=== PATIENT | male | born 1995 | race Caucasian/White ===

== ENCOUNTER 2018-12-23 17:29 | Emergency (ER) | payer SELFPAY ==
[2018-12-23 17:36] VITALS: BP 123/69
--- NOTE | 2018-12-23 18:55 | ER Document Report ---
HPI - HPI Patient complains to provider of: Skin rash Time Seen by Provider: 12/23/18 18:10 Onset: Other - 1 month Onset/Duration: Persistent Pain Level: 0 Context: Patient complains of pruritic skin rash to trunk extremities and the penis. Patient denies any drainage or discharge from the penis. Patient denies any concerns about any sexually transmitted infection. Patient states that rash has not been painful. Associated Symptoms: denies: Fever, Sore throat Exacerbated by: Denies Relieved by: Denies Similar symptoms previously: No Recently seen / treated by doctor: No - ROS ROS below otherwise negative: Yes Systems Reviewed and Negative: Yes All other systems reviewed and negative - CONSTITUTIONAL Constitutional: DENIES: Fever, Chills - EENT EENT: DENIES: Sore Throat - NEURO Neurology: DENIES: Headache - GASTROINTESTINAL Gastrointestinal: DENIES: Abdominal Pain - URINARY Urinary: DENIES: Dysuria, Urgency, Frequency - MUSCULOSKELETAL Musculoskeletal: DENIES: Extremity pain - DERM Skin Color: Normal Skin Problems: Rash Past Medical History - General Information source: Patient - Social History Smoking Status: Never Smoker Chew tobacco use (# tins/day): No Frequency of alcohol use: Occasional Drug Abuse: Marijuana Occupation: Retail Lives with: Spouse/Significant other Family History: Reviewed & Not Pertinent Patient has suicidal ideation: No Patient has homicidal ideation: No - Medical History Medical History: Negative Renal/ Medical History: Denies: Hx Peritoneal Dialysis Past Surgical History: Reports: Other - Eye surgery Vertical Provider Document - CONSTITUTIONAL Agree With Documented VS: Yes Exam Limitations: No Limitations General Appearance: WD/WN, No Apparent Distress - INFECTION CONTROL TRAVEL OUTSIDE OF THE [place] IN LAST 30 DAYS: No - HEENT HEENT: Atraumatic, Normocephalic - NECK Neck: Normal Inspection, Supple - RESPIRATORY Respiratory: Breath Sounds Normal, No Respiratory Distress - CARDIOVASCULAR Cardiovascular: Regular Rate, Regular Rhythm - REPRODUCTIVE Male Genitalia: Abnormal Inspection - Patient with crusted, excoriated erythematous papular lesions to penis and glans, areas are nontender, no inguinal lymphadenopathy. No drainage or discharge from penis. PCT Diogo standby - MUSCULOSKELETAL/EXTREMETIES Musculoskeletal/Extremeties: ABEBE DUMONT - NEURO Level of Consciousness: Awake, Alert, Appropriate - DERM Integumentary: Warm, Dry, Rash - Patient with skin rash to bilateral upper and lower extremities with papular dry appearance. Patient with scattered erythematous papular lesions to lower extremity, groin and back area with some lesions that are crusted. Course - Re-evaluation Re-evalutation: 12/23/18 18:53 Patient with rash to bilateral upper and lower extremities concerning for keratosis pilaris, patient does have additional skin lesions worrisome for possible scabies involving area to the groin, penis waist and back area. Patient denies any concern about STD and declines testing at this time. - Vital Signs Vital signs: Temp Pulse Resp BP Pulse Ox 98.0 F 94 16 123/69 99 12/23/18 17:34 12/23/18 17:34 12/23/18 17:34 12/23/18 17:34 12/23/18 17:34 Discharge - Discharge Clinical Impression: Skin rash, Keratosis pilaris Condition: Stable Disposition: HOME, SELF-CARE Instructions: Anti-Mite Skin Creams, Atopic Dermatitis (Eczema) ([facility]), Scabies ([facility]) Additional Instructions: Return immediately for any new or worsening symptoms Followup with your primary care provider, call tomorrow to make a followup appointment Prescriptions: Permethrin [Elimite] 60 gm TP ONCE #60 gm Triamcinolone Acetonide [Aristocort 0.1% Cream] 1 applic TP TID #60 gm Referrals: [facility] [Provider Group] - Follow up as needed
== END 2018-12-23 19:02 | disposition home or self-care (01) ==
LOC: ER 17:29
DX: L85.8 Other specified epidermal thickening (principal); R21 Rash and other nonspecific skin eruption; F12.10 Cannabis abuse, uncomplicated
CPT/HCPCS: 87250; 99282

== ENCOUNTER 2019-01-15 17:34 | Emergency (ER) | payer SELFPAY ==
[2019-01-15 17:53] VITALS: BP 120/78
--- NOTE | 2019-01-15 20:02 | ER Document Report ---
ED Skin Rash/Insect Bite/Abscs - General Chief Complaint: Skin Problem Stated Complaint: SKIN PROBLEM Time Seen by Provider: 01/15/19 19:51 Mode of Arrival: Ambulatory Information source: Patient Notes: 23-year-old male presented to ED for itching all over. He states he was seen here about a month ago for scabies and he got very concerned about his family and instead of filling this prescription he went to take care of them and lost his prescription. He states now he is itching all over and he is only well seen today for itching and rash and were treated with scabies and he was told that he cannot come home if he did not get treated. TRAVEL OUTSIDE OF THE [place] IN LAST 30 DAYS: No - HPI Patient complains to provider of: Other - Scabies from a month ago that have not been treated Onset: Other - Over a month ago Onset/Duration: Persistent Quality of pain: No pain Severity: None Pain Level: Denies Skin Character: Rash Quality of rash: Itchy Identify cause: Yes - Scabies Exacerbated by: Denies Relieved by: Denies Similar symptoms previously: Yes Recently seen / treated by doctor: Yes - Related Data Allergies/Adverse Reactions: No Known Allergies Allergy (Verified 01/15/19 17:38) Past Medical History - General Information source: Patient - Social History Smoking Status: Never Smoker Frequency of alcohol use: Occasional Drug Abuse: None, Marijuana Occupation: [employer] Lives with: Family Family History: Reviewed & Not Pertinent Patient has suicidal ideation: No Patient has homicidal ideation: No - Past Medical History Cardiac Medical History: Reports: None Pulmonary Medical History: Reports: None EENT Medical History: Reports: None Neurological Medical History: Reports: None Endocrine Medical History: Reports: None Renal/ Medical History: Reports: None Malignancy Medical History: Reports None GI Medical History: Reports: None Musculoskeletal Medical History: Reports None Skin Medical History: Reports None Psychiatric Medical History: Reports: None Traumatic Medical History: Reports: None Infectious Medical History: Reports: None Past Surgical History: Reports: Other - Eye surgery Review of Systems - Review of Systems Constitutional: No symptoms reported EENT: No symptoms reported Cardiovascular: No symptoms reported Respiratory: No symptoms reported Gastrointestinal: No symptoms reported Genitourinary: No symptoms reported Male Genitourinary: No symptoms reported Musculoskeletal: No symptoms reported Skin: Rash Hematologic/Lymphatic: No symptoms reported Neurological/Psychological: No symptoms reported -: Yes All other systems reviewed and negative Physical Exam - Vital signs Vitals: Temp Pulse Resp BP Pulse Ox 98.8 F 99 16 120/78 98 01/15/19 17:52 01/15/19 17:52 01/15/19 17:52 01/15/19 17:52 01/15/19 17:52 Interpretation: Normal - General General appearance: Appears well, Alert - HEENT Head: Normocephalic, Atraumatic Eyes: Normal Pupils: PERRL - Respiratory Respiratory status: No respiratory distress Chest status: Nontender Breath sounds: Normal Chest palpation: Normal - Cardiovascular Rhythm: Regular Heart sounds: Normal auscultation Murmur: No - Abdominal Inspection: Normal Distension: No distension Bowel sounds: Normal Tenderness: Nontender Organomegaly: No organomegaly - Genitourinary Inspection: Other - Papular lesions to his a groin area very itchy no drainage - Back Back: Normal, Nontender - Extremities General upper extremity: Normal inspection, Nontender, Normal color, Normal ROM, Normal temperature General lower extremity: Normal inspection, Nontender, Normal color, Normal ROM, Normal temperature, Normal weight bearing. No: Tamy's sign - Neurological Neuro grossly intact: Yes Cognition: Normal Orientation: AAOx4 [place] Coma Scale Eye Opening: Spontaneous [place] Coma Scale Verbal: Oriented [place] Coma Scale Motor: Obeys Commands [place] Coma Scale Total: 15 Speech: Normal Motor strength normal: LUE, RUE, LLE, RLE Sensory: Normal - Psychological Associated symptoms: Normal affect, Normal mood - Skin Skin Temperature: Warm Skin Moisture: Dry Skin Color: Normal Skin irregularity: Rash Location of irregularity: Extremities - Bilateral feet bilateral legs, Other - Groin back abdomen Character of irregularity: Papular, Linear - Some areas are scattered, Erythematous Irregularity with: Crusting Course - Re-evaluation Re-evalutation: 01/15/19 21:45 Patient was given prescription for permethrin and instructed to please use at this time and not forget to use it as the rash will just get worse if he does not use the medication. Patient verbalized understanding and agreement with treatment plan - Vital Signs Vital signs: Temp Pulse Resp BP Pulse Ox 98.8 F 99 16 120/78 98 01/15/19 17:52 01/15/19 17:52 01/15/19 17:52 01/15/19 17:52 01/15/19 17:52 Discharge - Discharge Clinical Impression: Scabies Condition: Stable Disposition: HOME, SELF-CARE Instructions: Family Physicians / Practices Additional Instructions: Scabies Your exam suggests the presence of scabies, which are microscopic parasites of the skin. These mites dru through the skin, causing severe itching. The mite can be spread to other persons by skin contact. All clothing, towels, and bedding should be washed in very hot water, set aside for a week, then washed again. You should apply scabies-killing lotion from the neck down, then wash it off after 12 hours. You may need medication for itching, as the itch persists for many days after the mites have been killed. All family members and close personal contacts should be examined. Repeat treatment may be necessary if the infestation is not eliminated with a single treatment. Call the doctor if you develop increasing swelling and redness, red streaks, tender lumps, fever, or drainage from a skin sore. I have written you prescription for permethrin cream. Please apply that from chin down leave on for 8 to 14 hours rinse off well. May repeat in 1 week. You may continue to have itching use Benadryl or Caladryl lotion for the itching but this should kill the mites. All bed linens will need to be laundered all pillows sealed and all counts services and carpets should be vacuumed well after treatment. All people in the house should be treated. FOLLOW-UP CARE: If you have been referred to a physician for follow-up care, call the physicians office for an appointment as you were instructed or within the next two days. If you experience worsening or a significant change in your symptoms, notify the physician immediately or return to the Emergency Department at any time for re-evaluation. Prescriptions: Permethrin [Elimite] 60 gm TP ONCE PRN #1 cream.gm. PRN Reason: Forms: Smoking Cessation Education, Return to Work
== END 2019-01-15 20:12 | disposition home or self-care (01) ==
LOC: ER 17:34
DX: B86 Scabies (principal); R21 Rash and other nonspecific skin eruption
CPT/HCPCS: 99283